=== PATIENT | female | born 1995 | race Caucasian/White ===

== ENCOUNTER 2019-10-20 06:37 | Day surgery (SDC) | payer MEDICAID, SELFPAY ==
[2019-10-16 13:45] VITALS: BMI 31.0
--- NOTE | 2019-10-16 14:04 | ANES.PREANES ---
Pre-Anesthetic Assessment Pre-Anesthetic Assessment: Height/Weight: Height 1.75 m Weight 95.254 kg Proposed Procedure: Operation Date: 10/20/19 07:00 Proposed Procedures p Laparoscopic Tubal Fulguration w/ salpingectomy(Not Applicable) - Shaheen Maria MD Social: Social History: No alcohol and No tobacco Exam: Pre-Anes Outpt Exam: alert, oriented x 3, clear to auscultation bilaterally and regular rate & rhythm Airway: Submandibular: WNL Cervical ROM: WNL MP: 2 Dentition: Full History/ROS: No significant history except as noted Anesthetic Plan: ASA status: I Anesthesia: Anesthesia Evaluation and General Risk of > 500 ml blood loss (7ml/kg in children): No PFSH Anesthesia PFSH: Social History Smoking and tobacco status: never smoked Alcohol intake: never Substance/Drug Use: never Additional social history: Well balanced diet Data Anesthesia Cardiac Studies: No Data to Display
[2019-10-16 16:04] LABS: HCG Qualitative Urine. Negative (Negative)
[2019-10-16 17:20] LABS: Hematocrit 39.3 % (37.0-47.0); Hemoglobin 12.3 g/dL (11.5-15.3); Mean Corpuscular HGB Conc 31.3 g/dL (30.0-36.0); Mean Corpuscular Hemoglobin 27.4 pg (28.0-34.0); Mean Corpuscular Volume 87.5 fL (81-99); Mean Platelet Volume 11.4 fL (7.4-10.4); Platelet Count 350 10^3/cmm (130-400); Red Blood Count 4.49 10^6/uL (4.1-5.3); Red Cell Distribution Width 12.3 % (12.1-15.1); White Blood Count 7.4 10^3/uL (4.0-10.0)
[2019-10-16 19:28] LABS: Absolute Neutrophil 4.8 10^3/cmm (1.4-6.5); Absolute Segmented Neutrophil 4.8 10/cmm (1.6-7.1); Basophils Absolute 0.1 10^3/cmm (0.0-0.2); Eosinophils 1 %; Giant Platelets 1+; Lymphocytes 27 %; Lymphocytes Absolute 2.2 10^3/cmm (1.2-3.4); Monocytes Absolute 0.2 10^3/cmm (0.1-0.6); Platelet Estimate Normal (Normal); Poikilocytosis Trace; Segmented Neutrophils 65 %; Smudge Cells Trace; Total Cells Counted 100 (0-100)
[2019-10-20] VITALS (10 sets, daily range): BP systolic 92–147; BP diastolic 71–96; PULSE 70–109; RESP 16–18; TEMP 36.2–36.6; O2SAT 96–100
--- NOTE | 2019-10-20 07:24 | PM.HPUD ---
H&P update H&P Update: DATE OF SURGERY/PROCEDURE: 10/20/19 DATE H&P PERFORMED: 10/16/19 H&P UPDATE INFORMATION: No changes to prior documentation PLANNED PROCEDURE: Operation Date: 10/20/19 08:05 Proposed Procedures p Laparoscopic Tubal Fulguration w/ salpingectomy(Not Applicable) - Shaheen Maria MD Conscious Sedation: Patient reassessed prior to sedation, with no change noted: Yes PHYSICAL EXAM: alert, oriented x 3, clear to auscultation bilaterally, regular rate & rhythm and operative site marked Full H&P Perinent History: Medical/Surgical History: Medical History (Updated 10/17/19 @ 20:14 by Shaheen Maria MD) 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 07/28/2018: ASCUS with positive high risk HPV Family History: Family History (Updated 10/12/19 @ 13:44 by Jeanette Rasmussen RN) Family/Other Ovarian cancer Maternal aunt Mother Diabetes Grandmother Diabetes maternal Thyroid condition paternal Social History: Social History Smoking and tobacco status: never smoked Alcohol intake: never Substance/Drug Use: never Additional social history: Well balanced diet
[2019-10-20] MEDS: sodium chloride 0.9% 1,000 ML 30 ML IV (07:26)
[2019-10-20] MEDS: ketorolac 30 mg/mL INJ IVP (07:41)
--- NOTE | 2019-10-20 08:58 | ANES.PAUD ---
Pre-Anesthetic Update Pre-Anesthetic Assessment: Date of Surgery/Procedure: 10/20/19 Proposed Procedure: Operation Date: 10/20/19 08:05 Proposed Procedures p Laparoscopic Tubal Fulguration w/ salpingectomy(Not Applicable) - Shaheen Maria MD Any changes to Pre-Anesthetic Assessment?: No Last Intake: Intake Last Liquid Date 10/19/19 Last Liquid Time 22:00 Last Solid Date 10/19/19 Last Solid Time 22:00 Vitals: Temperature 97.5 F L 10/20/19 07:00 Temperature Source Temporal Artery S can 10/20/19 07:00 Pulse Rate 109 H 10/20/19 07:00 Pulse Rhythm 10/20/19 07:00 Pulse Strength 3+ Normal 10/20/19 07:00 Respiratory Rate 18 10/20/19 07:00 Respiratory Effort Non-Labored 10/20/19 07:00 Respiratory Depth Normal 10/20/19 07:00 Respiratory Patter n 10/20/19 07:00 Blood Pressure 141/77 10/20/19 07:00 Blood Pressure Sofi n 98 10/20/19 07:00 Blood Pressure Pos ition Semi Fowlers 10/20/19 07:00 Pulse Oximetry 98 10/20/19 07:00 Oxygen Delivery Me thod 10/20/19 07:00 Cardiac Studies: No Data to Display
--- NOTE | 2019-10-20 09:50 | P.OP_ITS ---
Operative Report Post-Operative Note: Date of procedure: 10/20/19 Preop Diagnosis: Undesired fertility Post-op diagnosis: same Procedure Done: Laparoscopic bilateral tubal fulguration with complete salpingectomy Specimens removed/disposition: Right and left fallopian tubes Surgeon: Shaheen Maria Anesthesia: general Estimated blood loss (mL): 10 IV fluids (mL): 500 Complications: None Findings: Normal-appearing uterus, tubes, and ovaries. First-degree uterine prolapse noted under anesthesia Condition: stable Disposition: other (To home) Operative Report: Brief History: Patient is a 3, para 2-0-1-2 with an LMP of 09/26/2019 who is currently using Xulane patch for control. She had presented to the office in the beginning of September to discuss sterilization. She was adamant that she did not want any further children and wanted to proceed with sterilization. Permanence of sterilization had been discussed with her. Different sterilization methods had been discussed. Risks of the procedures, failure rates, and risk for ectopic were discussed. Questions were answered and she wished to proceed with complete removal of the tubes. Medicaid consent form has been signed on 07/16/2019. Prior to going to surgery today, the permanence was again reviewed. The inability of the procedure to be reversed with complete removal of the tubes was reviewed. Questions were answered. She still wished to proceed with complete removal of tubes. Procedure: Patient was taken to the operating room were general anesthesia was obtained. She was prepped and draped in the usual sterile fashion in the dorsal supine position with legs in Santana style stirrups. Sequential compression boots were placed prior to starting the case. Catheter was inserted and bladder was drained. Exam under anesthesia was performed and patient was found to have first-degree uterine prolapse. Weighted speculum was placed in the vagina and the cervix was grasped with a single-tooth tenaculum. A ZUMI was placed. The infraumbilical region was injected with 2% lidocaine with epinephrine. Skin incision was made with the knife in the lower edge of the navel and a size 5 trocar and sheath were inserted under direct visualization using an Optiview type technique. Trocar was removed and replaced with a laparoscope confirming intra-abdominal placement. The abdomen was inflated with carbon dioxide. The anterior abdominal wall was inspected and noted to be free of adhesions. In the left and right lower quadrants lateral to the inferior epigastric vessels, the skin was injected with 2% lidocaine with epinephrine. Skin incisions were made with a knife and a 5 mm trocar and sheath were inserted under direct visualization at each site. The pelvis was thoroughly inspected and no abnormalities were noted. Normal-appearing uterus, tubes, and ovaries. Using the Voyant sealing device, starting on the left side at the fimbriated end of the tube, the mesosalpinx was sealed and cut along the length of the tube. At the proximal end of the tube, the tube itself was sealed and cut. The fallopian tube was brought out through the port. Using the Voyant sealing device, starting on the right side at the fimbriated end of the tube, the mesosalpinx was sealed and cut along the length of the tube. At the proximal end of the tube, the tube itself was sealed and cut. The fallopian tube was brought out through the port. The dissection area was thoroughly inspected and noted to be hemostatic. The abdomen was deflated and the ports removed. The 5 mm sites were closed with single stitches of 4-0 Vicryl suture. Skin glue was applied.. The ZUMI was removed and there was minimal bleeding from the tenaculum site. Patient tolerated the procedure well. Sponge, needle and instrument counts were correct. DISPOSITION: Discharge to home when criteria was met. FOLLOWUP APPOINTMENT: Followup appointment is scheduled in my office on 11/09/2019. MEDICATIONS: Patient received prescriptions for: Motrin 800 mg, 1 tablet 3 times a day as needed for pain, #30, 0 refills Surprise 5/325 mg, 1 to 2 tablets every 6 hours as needed for pain, #20, 0 refills Coding Level of Care Code Acute Conventional Underwriter for [facility] Kermit
--- NOTE | 2019-10-20 10:18 | SUR.PHASEI ---
1015 PT AWAKE ON RA PT ALERT DENIES PAIN AND NAUSEA
--- NOTE | 2019-10-20 13:42 | ANE.PACU ---
 Inpatient post-anesthesia follow up: Airway intact: Yes Vital signs: Temperature 98 F Pulse Rate [Left B rachial] 86 Respiratory Rate 18 Blood Pressure [Le ft Arm] 127/92 Pulse Oximetry 96 Oxygen Delivery Me thod Room Air Oxygen Flow Rate 8 Fraction of Inspir ed Oxygen Hydration adequate: Yes Nausea and vomiting: No Mental status: Baseline
== END 2019-10-20 11:20 | disposition home or self-care (01) ==
PROVIDERS: Family Provider Family Medicine; PCP Family Medicine; Visit Provider Obstetrics & Gynecology
PROC: (CPT 58661; principal; 2019-10-20 08:05)
DX: Z30.2 Encounter for sterilization (principal); N81.2 Incomplete uterovaginal prolapse; Z80.41 Family history of malignant neoplasm of ovary; Z83.3 Family history of diabetes mellitus
CPT/HCPCS: 58670; 81025; 85007; 85027; 88302; 99221; J1100; J1885; J2001; J2405; J2704; J3010; J3490; J7030

== ENCOUNTER 2019-11-10 08:17 | Outpatient (CLI) | payer MEDICAID, SELFPAY ==
--- NOTE | 2019-11-10 08:26 | US_ITS ---
WS: [id number] RIGHT UPPER QUADRANT ULTRASOUND HISTORY: ACUTE DIARRHEA/EPIGASTRIC PAIN COMPARISON: None available. Liver: 14.6 cm in length. Normal size and echogenicity with no intrahepatic dilatation. No mass. Gallbladder: Normally distended gallbladder with no stones or wall thickening. CBD: 2.0 mm Pancreas: Normal size and echogenicity. Right kidney: 9.4 cm in length. Normal echogenicity with no mass or hydronephrosis. Aorta and IVC: Unremarkable. No ascites. US/US abdomen limited [id number] IMPRESSION: Normal RIGHT upper quadrant ultrasound.
== END 2019-11-10 08:18 | disposition home or self-care (01) ==
LOC: RAD 08:20
PROVIDERS: Family Provider Family Medicine; PCP Family Medicine; Visit Provider Nurse Practitioner Family
DX: R19.7 Diarrhea, unspecified (principal); R10.13 Epigastric pain
CPT/HCPCS: 76705